=== PATIENT | male | born 1960 | race Caucasian/White ===

== ENCOUNTER 2021-03-12 16:03 | Observation (INO) | payer OTHER ==
[2021-03-12 17:33] LABS: Absolute Lymphocytes (CBC) 2.3 K/uL (0.7-4.9); Basophils % 1.1 % (0-1.3); Hematocrit 46.5 % (39.6-49.0); Lymphocytes % 31.1 % (15.3-44.8); RBC Red Blood Cell Count 5.06 M/uL (4.33-5.43)
--- NOTE | 2021-03-12 17:47 | RAD REPORT ---
EXAM DESCRIPTION: RAD - Chest Single View - 03/12/2021 4:59 pm CLINICAL HISTORY: CHEST PAIN COMPARISON: June 2019 TECHNIQUE: AP portable chest image was obtained 03/12/2021 4:59 pm . FINDINGS: No acute lung parenchymal process. Interstitial pattern matches comparison. Heart and vasc ulature are normal. No measurable pleural effusion and no pneumothorax. No acute bony abnormality see n. No acute aortic findings suspected. IMPRESSION: No acute cardiopulmonary process. No significant change from comparison study.
[2021-03-12 18:17] LABS: Protime INR 0.94
[2021-03-12 18:27] LABS: ALT/SGPT 28 U/L (12-78); AST/SGOT 14 U/L (15-37); Albumin 3.7 g/dL (3.4-5.0); Alkaline Phosphatase 75 U/L (45-117); BUN Blood Urea Nitrogen 9 mg/dL (7-18); Bicarbonate 27 mmol/L (21-32); Bilirubin Direct < 0.1 mg/dL (0-0.2); Bilirubin Total 0.3 mg/dL (0.2-1.0); Glucose Level 87 mg/dL (74-106); Magnesium 2.5 mg/dL (1.8-2.4); NT PRO-BNP 28 pg/mL (<125); Potassium 4.3 mmol/L (3.5-5.1); Protein, Total 8.1 g/dL (6.4-8.2); Sodium Level 140 mmol/L (136-145); Troponin (Emerg Dept Use Only) < 0.02 ng/mL (0.0-0.045)
--- NOTE | 2021-03-12 18:50 | ER ---
Nurse's Notes [facility] Name: Barrett Aguilar Age: 60 yrs Sex: Male : 1960 Arrival Date: 03/12/2021 Time: 16:04 Bed 20 Private MD: Juliocesar Faust Diagnosis: Chest pain on breathing Presentation: 03/12 16:05 Chief complaint: Patient states: CP for 3 days. Coronavirus screen: Vaccine status: ll1 Patient reports receiving the 2nd dose of the covid vaccine. Client denies travel out of the [place] in the last 14 days. Ebola Screen: Patient denies travel to an Ebola-affected area in the 21 days before illness onset. Initial Sepsis Screen: Does the patient meet any 2 criteria? No. Patient's initial sepsis screen is negative. Does the patient have a suspected source of infection? No. Patient's initial sepsis screen is negative. Risk Assessment: Do you want to hurt yourself or someone else? Patient reports no desire to harm self or others. Onset of symptoms was March 10, 2021. 16:05 Method Of Arrival: Ambulatory ll1 16:05 Acuity: BILL 3 ll1 Triage Assessment: 16:18 General: Appears in no apparent distress. Behavior is calm, cooperative. Pain: Denies jw6 pain. Historical: - Allergies: 16:06 No Known Allergies; ll1 - PMHx: 16:06 Diverticulitis; bowel blockage; pneumonia; ll1 - PSHx: 16:06 sinus SX; ll1 - Immunization history:: Client reports receiving the 2nd dose of the Covid vaccine. - Social history:: Smoking status: Patient denies any tobacco usage or history of. Screenin:17 Abuse screen: Denies threats or abuse. Denies injuries from another. Nutritional jw6 screening: No deficits noted. Tuberculosis screening: No symptoms or risk factors identified. Fall Risk None identified. Assessment: 16:17 Pain: Pain does not radiate. Pain began 2-3 days ago. Cardiovascular: No deficits noted.jw6 20:30 Reassessment: Awake/alert; c/o chest pain 6/10 on pain scale; SR with no ectopy; VSS; cc4 Bryan Denney NP paged with new order rec'd. 20:40 Reassessment: medicated as ordered for pain; O2 intact \T\ 2 L/NBP. cc4 Vital Signs: 16:05 BP 165 / 105; Pulse 76; Resp 17; Temp 98.3; Pulse Ox 100% on R/A; Weight 99.79 kg; ll1 Height 5 ft. 6 in. (167.64 cm); Pain 6/10; 16:28 BP 142 / 88; Pulse 79; Resp 18; Pulse Ox 98% on R/A; jw6 19:30 BP 136 / 83; Pulse 80; Resp 20; Temp 97.8; Pulse Ox 99% on R/A; cc4 20:00 BP 121 / 62; Pulse 74; Resp 18; Pulse Ox 98% on 2 lpm NC; cc4 20:30 BP 123 / 60; Pulse 74; Resp 18; Pulse Ox 98% on 2 lpm NC; cc4 21:00 BP 127 / 80; Pulse 68; Resp 18; Pulse Ox 99% on 2 lpm NC; cc4 21:30 BP 117 / 74; Pulse 68; Resp 18; Pulse Ox 98% on 2 lpm NC; cc4 22:00 BP 113 / 81; Pulse 66; Resp 18; Pulse Ox 99% on 2 lpm NC; cc4 22:30 BP 114 / 77; Pulse 66; Resp 18; Pulse Ox 99% on 2 lpm NC; cc4 23:00 BP 119 / 75; Pulse 69; Resp 18; Pulse Ox 100% on 2 lpm NC; cc4 23:30 BP 122 / 78; Pulse 67; Resp 18; Pulse Ox 100% ; cc4 03/13 00:00 BP 114 / 75; Pulse 65; Resp 18; Temp 97.6; Pulse Ox 100% on 2 lpm NC; cc4 00:30 BP 115 / 74; Pulse 68; Resp 18; Pulse Ox 100% on 2 lpm NC; cc4 03/12 16:05 Body Mass Index 35.51 (99.79 kg, 167.64 cm) ll1 ED Course: 03/12 16:04 Patient arrived in ED. as 16:06 Triage completed. ll1 16:07 Arm band placed on Patient placed in an exam room, on a stretcher. ll1 16:10 Juliocesar Faust is Private Physician. as 16:12 [facility]da[facility] 16:12 Bruce Callahan MD is Attending Physician. jmm 16:17 Suly Ramsay is Primary Nurse. jw6 16:17 Patient has correct armband on for positive identification. Side rails up X 1. Cardiac jw6 monitor on. 16:17 No provider procedures requiring assistance completed. Patient maintains SpO2 jw6 saturation greater than 95% on room air. 17:00 XRAY Chest (1 view) In Process Unspecified. EDMS 17:13 Missed attempt(s): 20 gauge antecubital area. 22 gauge forearm. mh5 17:14 Warm blanket given. Pulse ox on. NIBP on. mh5 17:15 Inserted saline lock: 22 gauge in right hand, using aseptic technique. Blood collected. ll1 17:25 Basic Metabolic Panel Sent. jw6 18:49 Augustine Carrillo MD is Hospitalizing Provider. ma2 03/13 00:30 IV Converted IV to saline lock on right hand cc4 Administered Medications: 03/12 19:03 Drug: Aspirin Chewable Tablet 324 mg Route: PO; jw6 19:04 Follow up: Response: No adverse reaction jw6 19:03 Drug: Dilaudid (HYDROmorphone) 1 mg Route: IVP; Site: right hand; jw6 19:03 Follow up: Response: No adverse reaction jw6 19:03 Drug: Zofran (Ondansetron) 4 mg Route: IVP; Site: right hand; jw6 19:03 Follow up: Response: No adverse reaction jw6 19:03 Drug: NS 0.9% 1000 ml Route: IV; Rate: 1 bolus; Site: right hand; jw6 22:38 CANCELLED (Other Intervention Used): morphine 2 mg IVP once; (PAIN>8) RASS on ADMN: la1 Combtv4, Very Agttd3, Agttd2, Rstlss1, AlertClm0, Drwsy-1, LtSdtn-2, ModSdtn-3, DpSdtn-4, UnArsble-5 x2 22:40 Drug: morphine 2 mg Route: IVP; Site: right hand; cc4 Outcome: 18:49 Decision to Hospitalize by Provider. ma2 03/13 00:30 Admitted to Med/surg accompanied by tech, via wheelchair, room 224, with oxygen, Report cc4 called to C. Adgar, RN. Condition: improved 01:50 Patient left the ED. cc4 Signatures: Dispatcher [employer] EDMS Alvin Saldaña PA PA jmm Martinez, Amelia as Martinez, Maria 5 Bruce Callahan MD MD ma2 Sarah Beth Acosta RN RN ll1 Belia Santiago RN RN cc4 Suly Ramsay 6 SheltondenitaBryan [facility] Corrections: (The following items were deleted from the chart) 03/12 23:12 21:00 BP 121 / 62; Pulse 74bpm; Resp 18bpm; Pulse Ox 95% RA; cc4 cc4 03/13 00:00 03/12 23:00 BP 119 / 75; Pulse 69bpm; Resp 20bpm; Pulse Ox 95% RA; Temp 97.6F; cc4 cc4 03/13 00:00 03/12 22:30 BP 114 / 77; Pulse 66bpm; Resp 20bpm; Pulse Ox 99% RA; 4 4 03/13 00:00 03/12 22:50 BP 128 / 84; Pulse 68bpm; Resp 18bpm; Pulse Ox 99% RA; 4 4 03/13 00:00 03/12 20:00 BP 121 / 62; Pulse 74bpm; Resp 18bpm; Pulse Ox 95% RA; 4 cc4 03/13 00:00 03/12 21:00 BP 127 / 80; Pulse 68bpm; Resp 20bpm; Pulse Ox 98% RA; 4 4 03/13 00:00 03/12 20:30 BP 123 / 60; Pulse 74bpm; Resp 18bpm; Pulse Ox 95% RA; 4 4 03/13 00:00 03/12 21:30 BP 117 / 74; Pulse 68bpm; Resp 20bpm; Pulse Ox 98% RA; 4 cc4 03/13 00:00 03/12 22:00 BP 113 / 81; Pulse 66bpm; Resp 18bpm; Pulse Ox 98% RA; 4 cc4 03/13 00:00 03/12 23:30 BP 122 / 78; Pulse 67bpm; Resp 18bpm; Pulse Ox 100% RA; 4 4
--- NOTE | 2021-03-12 18:50 | EDPHYS ---
Physician Documentation [facility] Name: Barrett Aguilar Age: 60 yrs Sex: Male : 1960 Arrival Date: 03/12/2021 Time: 16:04 Bed 20 Private MD: Juliocesar Faust ED Physician Bruce Callahan HPI: 03/12 16:13 This 60 yrs old Male presents to ER via Ambulatory with complaints of Chest jmm Pain. 16:13 The patient or guardian reports chest pain that is located primarily in the substernal jmm area. Onset: gradually, 3 day(s) ago. The pain does not radiate. Associated signs and symptoms: Pertinent negatives: shortness of breath. The chest pain is described as aching. Duration: The patient or guardian reports a single episode, that is still ongoing. Modifying factors: The symptoms are alleviated by nothing. the symptoms are aggravated by nothing. This is a 60 year old male with a history of diverticulitis that presents to the ED with complaints of substernal chest pain beginning approx 3 days ago. Pain has been constant. Denies radiation. Denies fam hx of CAD.. Historical: - Allergies: 16:06 No Known Allergies; ll1 - PMHx: 16:06 Diverticulitis; bowel blockage; pneumonia; ll1 - PSHx: 16:06 sinus SX; ll1 - Immunization history:: Client reports receiving the 2nd dose of the Covid vaccine. - Social history:: Smoking status: Patient denies any tobacco usage or history of. ROS: 16:13 Constitutional: Negative for fever, chills, and weight loss, Respiratory: Negative for jmm shortness of breath, cough, wheezing, and pleuritic chest pain. 16:13 Cardiovascular: Positive for chest pain. 16:13 All other systems are negative. Exam: 16:13 Constitutional: This is a well developed, well nourished patient who is awake, alert, jmm and in no acute distress. Head/Face: atraumatic. Eyes: EOMI, no conjunctival erythema appreciated ENT: Moist Mucus Membranes Neck: Trachea midline, Supple Chest/axilla: Normal chest wall appearance and motion. Cardiovascular: Regular rate and rhythm. No edema appreciated Respiratory: Normal respirations, no respiratory distress appreciated Abdomen/GI: Non distended, soft Back: Normal ROM Skin: General appearance color normal MS/ Extremity: Moves all extremities, no obvious deformities appreciated, no edema noted to the lower extremities Neuro: Awake and alert, normal gait Psych: Behavior is normal, Mood is normal, Patient is cooperative and pleasant Vital Signs: 16:05 BP 165 / 105; Pulse 76; Resp 17; Temp 98.3; Pulse Ox 100% on R/A; Weight 99.79 kg; ll1 Height 5 ft. 6 in. (167.64 cm); Pain 6/10; 16:28 BP 142 / 88; Pulse 79; Resp 18; Pulse Ox 98% on R/A; jw6 19:30 BP 136 / 83; Pulse 80; Resp 20; Temp 97.8; Pulse Ox 99% on R/A; cc4 20:00 BP 121 / 62; Pulse 74; Resp 18; Pulse Ox 98% on 2 lpm NC; cc4 20:30 BP 123 / 60; Pulse 74; Resp 18; Pulse Ox 98% on 2 lpm NC; cc4 21:00 BP 127 / 80; Pulse 68; Resp 18; Pulse Ox 99% on 2 lpm NC; cc4 21:30 BP 117 / 74; Pulse 68; Resp 18; Pulse Ox 98% on 2 lpm NC; cc4 22:00 BP 113 / 81; Pulse 66; Resp 18; Pulse Ox 99% on 2 lpm NC; cc4 22:30 BP 114 / 77; Pulse 66; Resp 18; Pulse Ox 99% on 2 lpm NC; cc4 23:00 BP 119 / 75; Pulse 69; Resp 18; Pulse Ox 100% on 2 lpm NC; cc4 23:30 BP 122 / 78; Pulse 67; Resp 18; Pulse Ox 100% ; cc4 03/13 00:00 BP 114 / 75; Pulse 65; Resp 18; Temp 97.6; Pulse Ox 100% on 2 lpm NC; cc4 00:30 BP 115 / 74; Pulse 68; Resp 18; Pulse Ox 100% on 2 lpm NC; cc4 03/12 16:05 Body Mass Index 35.51 (99.79 kg, 167.64 cm) ll1 MDM: 03/12 16:26 Patient medically screened. [facility] 18:48 Differential diagnosis: anxiety, coronary artery disease gastroesophageal reflux ma2 disease (GERD), stable angina. The patient was given aspirin in the Emergency Department. Data reviewed: vital signs, nurses notes. Counseling: I had a detailed discussion with the patient and/or guardian regarding: the historical points, exam findings, and any diagnostic results supporting the discharge/admit diagnosis, the presence of at least one elevated blood pressure reading (>120/80) during this emergency department visit, the need for further work-up and treatment in the hospital. 03/12 16:13 Order name: Basic Metabolic Panel [facility] 03/12 16:13 Order name: CBC with Diff; Complete Time: 18:43 [facility] 03/12 16:13 Order name: LFT's; Complete Time: 18:43 [facility] 03/12 16:13 Order name: Magnesium; Complete Time: 18:43 [facility] 03/12 16:13 Order name: NT PRO-BNP; Complete Time: 18:43 [facility] 03/12 16:13 Order name: PT-INR; Complete Time: 18:43 [facility] 03/12 16:13 Order name: Troponin (emerg Dept Use Only); Complete Time: 18:43 [facility] 03/12 16:13 Order name: XRAY Chest (1 view); Complete Time: 18:01 [facility] 03/12 16:13 Order name: D-Dimer; Complete Time: 18:43 [facility] 03/12 16:13 Order name: Basic Metabolic Panel; Complete Time: 18:43 [facility] 03/12 19:05 Order name: COVID-19 SARS RT PCR (Document "Date of Onset" if Symptomatic); Complete tt3 Time: 10:03/12 16:13 Order name: EKG; Complete Time: 16:13 [facility] 03/12 16:13 Order name: Cardiac monitoring; Complete Time: 16:20 [facility] 03/12 16:13 Order name: EKG - Nurse/Tech; Complete Time: 16:20 [facility] 03/12 16:13 Order name: IV Saline Lock; Complete Time: 17:25 [facility] 03/12 16:13 Order name: Labs collected and sent; Complete Time: 17:25 [facility] 03/12 16:13 Order name: O2 Per Protocol; Complete Time: 16:20 [facility] 03/12 16:13 Order name: O2 Sat Monitoring; Complete Time: 16: [facility] 03/12 17:38 Order name: Labs - recollect needed: recollect all the blood please/ hemolyzed; eb Complete Time: 18:20 Administered Medications: 19:03 Drug: Aspirin Chewable Tablet 324 mg Route: PO; jw6 19:04 Follow up: Response: No adverse reaction jw6 19:03 Drug: Dilaudid (HYDROmorphone) 1 mg Route: IVP; Site: right hand; jw6 19:03 Follow up: Response: No adverse reaction jw6 19:03 Drug: Zofran (Ondansetron) 4 mg Route: IVP; Site: right hand; jw6 19:03 Follow up: Response: No adverse reaction jw6 19:03 Drug: NS 0.9% 1000 ml Route: IV; Rate: 1 bolus; Site: right hand; jw6 22:38 CANCELLED (Other Intervention Used): morphine 2 mg IVP once; (PAIN>8) RASS on ADMN: la1 Combtv4, Very Agttd3, Agttd2, Rstlss1, AlertClm0, Drwsy-1, LtSdtn-2, ModSdtn-3, DpSdtn-4, UnArsble-5 x2 22:40 Drug: morphine 2 mg Route: IVP; Site: right hand; cc4 Disposition: 18:48 Co-signature as Attending Physician, Bruce Callahan MD. ma2 Disposition Summary: 03/12/21 18:49 Hospitalization Ordered Hospitalization Status: Observation pa2 Provider: Augustine Carrillo ma Location: Telemetry/MedSurg (observation) ma2 Condition: Stable ma2 Problem: new ma2 Symptoms: are unchanged pa2 Bed/Room Type: Standard [facility] Room Assignment: 224(03/12/21 22:00) Diagnosis - Chest pain on breathing ma2 Forms: - Medication Reconciliation Form ma2 - SBAR form ma2 Signatures: Dispatcher [employer] EDMS Alvin Saldaña PA PA jmm Attema, Lee, SCIENTIFIC AIDE-C SCIENTIFIC AIDE-ClaJessica Copeland RN RN cg Bruce Callahan MD MD pa2 Stephany Guerra Lynsay, RN RN ll1 Belia Santiago RN RN cc4 Suly Ramsay jw6 Corrections: (The following items were deleted from the chart) 22:00 18:49 ma2 cg 22:38 22:38 morphine 2 mg IVP once; (PAIN>8) RASS on ADMN: Combtv4, Very Agttd3, Agttd2, la1 Rstlss1, AlertClm0, Drwsy-1, LtSdtn-2, ModSdtn-3, DpSdtn-4, UnArsble-5 x2 ordered. la1
--- NOTE | 2021-03-12 19:15 | P.HP ---
Certification for Inpatient Patient admitted to: Observation With expected LOS: <2 Midnights Patient will require the following post-hospital care: None Practitioner: I am a practitioner with admitting privileges, knowledge of patient current condition, hospital course, and medical plan of care. Services: Services provided to patient in accordance with Admission requirements found in Title 42 Section 412.3 of the Code of Federal Regulations Patient History Date of Service: 03/12/21 Primary Care Provider: Dr. Faust Reason for admission: Chest pain History of Present Illness: 60-year-old otherwise healthy male presents emerge department for chest pain. Patient reports pain is been on for approximately 3 days described as squeezing substernal radiating to the right arm, patient denies any form of cardiac evaluation in the past. Initial troponin, EKG, chest x-ray unremarkable the emergency department, ED provider wishes to admit for ACS rule out - Past Medical/Surgical History -: Chronic sinus issues -: Sinus surgery Psychosocial/ Personal History: Lives at home with his - Family History Father -: Cancer Mother -: Cancer - Social History Smoking Status: Never smoker Alcohol use: No CD- Drugs: No Caffeine use: Yes Place of Residence: Home Review of Systems 10-point ROS is otherwise unremarkable Cardiovascular: Chest Pain Physical Examination - Physical Exam General: Alert, In no apparent distress, Oriented x3 HEENT: Atraumatic, PERRLA, Mucous membr. moist/pink, EOMI, Sclerae nonicteric Neck: Supple, 2+ carotid pulse no bruit, No LAD, Without JVD or thyroid abnormality Respiratory: Clear to auscultation bilaterally, Normal air movement Cardiovascular: Regular rate/rhythm, Normal S1 S2 Gastrointestinal: Normal bowel sounds, No tenderness Musculoskeletal: No tenderness Integumentary: No rashes Neurological: Normal speech, Normal strength at 5/5 x4 extr, Normal tone, Normal affect - Studies Laboratory Data (last 24 hrs) 03/12/21 17:50: PT 10.8, INR 0.94 03/12/21 17:50: WBC 7.30, Hgb 15.6, Hct 46.5, Plt Count 239 03/12/21 17:50: Sodium 140, Potassium 4.3, BUN 9, Creatinine 0.86, Glucose 87, Magnesium 2.5 H, Total Bilirubin 0.3, AST 14 L, ALT 28, Alkaline Phosphatase 75 Assessment and Plan - Plan Assessment: Chest pain rule out ACS Plan: Chest pain rule out ACS: Monitor on telemetry, trend troponins, cardiology consult in place. Continue with aspirin, statin, beta-rosa therapy. As needed morphine. DVT PPX: Lovenox Code status: Full Discharge Plan: Home Plan to discharge in: 24 Hours - Advance Directives Does patient have a Living Will: No Does patient have a Durable POA for Healthcare: No - Code Status/Comfort Care Code Status Assessed: Yes (Full code) Critical Care: No Time Spent Managing Pts Care (In Minutes): 55
[2021-03-12] MEDS ORDERED: ASPIRIN 81 MG CHEWABLE TABLET ONE (19:23)
[2021-03-12] MEDS ORDERED: HYDROMORPHONE HCL 1 MG/ML INJ ONE (19:24)
[2021-03-12] MEDS ORDERED: NA CHLORIDE 0.9% 1,000 ML ONE (19:24)
[2021-03-12] MEDS ORDERED: ONDANSETRON 4 MG/2 ML VIAL ONE (19:24)
[2021-03-12] MEDS ORDERED: MORPHINE 2 MG/ML SYR ONE (23:07)
[2021-03-13] MEDS ORDERED: ONDANSETRON 4 MG/2 ML VIAL IV PRN (01:17)
[2021-03-13] MEDS ORDERED: ATORVASTATIN 40 MG TAB PO SCH (01:17)
[2021-03-13] MEDS ORDERED: ACETAMINOPHEN 500 MG TAB PO PRN (01:17)
[2021-03-13 01:30] VITALS: BMI 35.4
[2021-03-13 02:16] VITALS: O2SAT 100
[2021-03-13 02:25] LABS: Urine Appearance CLEAR (Clear); Urine Bilirubin NEGATIVE (Negative); Urine Blood NEGATIVE (Negative); Urine Color YELLOW (Yellow); Urine Glucose NEGATIVE (Negative); Urine Protein NEGATIVE (Negative); Urine Specific Gravity 1.015 (1.005-1.030); Urine Urobilinogen 0.2 mg/dL (0.2-1.0)
[2021-03-13 02:26] LABS: Urine Microscopic Reflex NO UMIC
[2021-03-13 02:47] LABS: Absolute Lymphocytes (CBC) 3.1 K/uL (0.7-4.9); Basophils % 0.8 % (0-1.3); MPV 8.2 fL (7.6-11.3); RBC Red Blood Cell Count 4.35 M/uL (4.33-5.43)
[2021-03-13 03:22] LABS: ALT/SGPT 25 U/L (12-78); AST/SGOT 13 U/L (15-37); Albumin 3.3 g/dL (3.4-5.0); Alkaline Phosphatase 66 U/L (45-117); BUN Blood Urea Nitrogen 10 mg/dL (7-18); Bicarbonate 29 mmol/L (21-32); Bilirubin Total 0.4 mg/dL (0.2-1.0); Glucose Level 94 mg/dL (74-106); HDL Cholesterol 49 mg/dL (40-60); LDL Cholesterol, Calculated 176 (<130); Magnesium 2.5 mg/dL (1.8-2.4); Protein, Total 7.1 g/dL (6.4-8.2); Sodium Level 142 mmol/L (136-145)
[2021-03-13] MEDS: MORPHINE 2 MG/ML SYR IV PRN ×2 (04:31→12:06)
[2021-03-13] MEDS ORDERED: METOPROLOL TAR 25 MG TAB PO SCH (06:00)
[2021-03-13] MEDS ORDERED: ENOXAPARIN 40 MG/0.4 ML SQ SCH (09:00)
[2021-03-13] MEDS ORDERED: ASPIRIN EC 81 MG TAB PO SCH (09:00)
[2021-03-13 14:08] VITALS: BP 106/55; TEMP 97.9
--- NOTE | 2021-03-13 14:22 | EKG ---
Test Date: 2021-03-12 Test Time: 16:13:47 Ingot Car Operator: SUSAN MEASUREMENT RESULTS: Intervals: Rate: 76 DC: 142 QRSD: 96 QT: 384 QTc: 432 [place]: P: 62 DC: 142 QRS: 27 T: 31 INTERPRETIVE STATEMENTS: Normal sinus rhythm Normal ECG Compared to ECG 05/05/2007 17:15:27 Sinus tachycardia no longer present Short DC interval no longer present ST (T wave) deviation no longer present Possible ischemia no longer present Electronically Signed On 03-13-21 14:21:32 CDT by Edi Lanza
--- NOTE | 2021-03-13 16:11 | P.DS ---
Admission Date: 03/12/21 Discharge Date: 03/13/21 Primary Care Provider: Dr. Faust Disposition: ROUTINE DISCHARGE Discharge Condition: GOOD Reason for Admission: Chest pain Consultations: Cardiology - Dr. Lanza Procedures: CXR (03/12): FINDINGS: No acute lung parenchymal process. Interstitial pattern matches comparison. Heart and vasculature are normal. No measurable pleural effusion and no pneumothorax. No acute bony abnormality seen. No acute aortic findings suspected. IMPRESSION: No acute cardiopulmonary process. No significant change from comparison study. Problem List Chest Pain Hyperlipidemia (LDL: 176) Brief History of Present Illness: 60-year-old otherwise healthy male presents emerge department for chest pain. Patient reports pain is been on for approximately 3 days described as squeezing substernal radiating to the right arm, patient denies any form of cardiac evaluation in the past. Initial troponin, EKG, chest x-ray unremarkable the emergency department, ED provider wishes to admit for ACS rule out Hospital Course: Chest pain was evaluated by chest x-ray, EKG, telemetry. Cardiology was consulted. Imaging and work-up remain negative, no signs of ischemia. He was noted to have hyperlipidemia, LDL in the 170s. Patient was deemed stable for discharge home. He is to follow-up with cardiology in this coming week for outpatient echocardiogram and stress test. Patient's calculated ASCVD risk score was ~10%. After discussion of his overall cardiac risk, patient's was in agreement to start moderate intensity statin therapy. Recommend repeat lipid profile in 6 weeks. Vital Signs/Physical Exam: Temp Pulse Resp BP Pulse Ox 97.9 F 69 18 106/55 L 97 03/13/21 12:00 03/13/21 12:00 03/13/21 12:00 03/13/21 12:00 03/13/21 12:00 General: Alert, In no apparent distress, Oriented x3 HEENT: Sclerae nonicteric Neck: Supple, No LAD Respiratory: Clear to auscultation bilaterally, Normal air movement Cardiovascular: No edema, Regular rate/rhythm, Normal S1 S2, No murmurs Gastrointestinal: Soft and benign, Non-distended, No tenderness Musculoskeletal: No erythema, No tenderness Integumentary: No rashes, No significant lesion Neurological: Normal speech, Normal affect Laboratory Data at Discharge: WBC 8.60 K/uL (4.3-10.9) D 03/13/21 02:07 Hgb 13.4 g/dL (13.6-17.9) L 03/13/21 02:07 Hct 40.0 % (39.6-49.0) 03/13/21 02:07 Plt Count 235 K/uL (152-406) 03/13/21 02:07 PT 10.8 SECONDS (9.5-12.5) 03/12/21 17:50 INR 0.94 03/12/21 17:50 Sodium 142 mmol/L (136-145) 03/13/21 02:07 Potassium 4.0 mmol/L (3.5-5.1) 03/13/21 02:07 BUN 10 mg/dL (7-18) 03/13/21 02:07 Creatinine 0.83 mg/dL (0.55-1.3) 03/13/21 02:07 Glucose 94 mg/dL (74-106) 03/13/21 02:07 Magnesium 2.5 mg/dL (1.8-2.4) H 03/13/21 02:07 Total Bilirubin 0.4 mg/dL (0.2-1.0) 03/13/21 02:07 AST 13 U/L (15-37) L 03/13/21 02:07 ALT 25 U/L (12-78) 03/13/21 02:07 Alkaline Phosphatase 66 U/L (45-117) 03/13/21 02:07 Troponin I < 0.02 ng/mL (0.0-0.045) 03/13/21 08:24 Triglycerides 154 mg/dL (<150) H 03/13/21 02:07 Cholesterol 256 mg/dL (<200) H 03/13/21 02:07 HDL Cholesterol 49 mg/dL (40-60) 03/13/21 02:07 Cholesterol/HDL Ratio 5.22 03/13/21 02:07 Home Medications: Atorvastatin Calcium 20 mg PO BEDTIME 30 Days #30 tablet 03/13/21 Cetirizine HCl [Zyrtec] 10 mg PO DAILY 03/13/21 Fluticasone [Flonase 50MCG Nasal Advance*] 2 sprays DAILY 03/13/21 Montelukast [Singulair*] 10 mg PO DAILY 03/13/21 New Medications: RX: Atorvastatin Calcium 20 mg PO BEDTIME 30 Days #30 tablet Physician Discharge Instructions: Chest pain was evaluated by EKG, chest x-ray, cardiac enzymes, and cardiac monitoring. Cardiology was consulted. Work-up remained negative and no evidence of heart damage, infection, blood clot, or other etiology of your pain. You are deemed stable for discharge home. You are found to have high cholesterol. You are discharged home with a cholesterol medication, atorvastatin. Follow-up with your PCP in 3-5 days. Follow-up with cardiology as discussed, for possible outpatient stress test. Diet: AHA Activity: Ad jihan Followup: Edi Lanza MD [ACTIVE - CAN ADMIT] - Juliocesar Faust MD [Primary Care Provider] - Time spent managing pt's care (in minutes): 45
--- NOTE | 2021-03-14 16:43 | CON ---
Date of Consultation: 03/13/2021 Reason For Consultation: Chest pain. History Of Present Illness: Mr. Aguilar is a 60. Has no previous heart history. Has a history of di verticulitis, pneumonia, sinusitis, and small bowel obstruction in the past. Came in with mid epigas tric to substernal chest pain. No shortness of breath. Pain was described as aching. The patient h as not changed by body position improved or exertion. Denies nausea, vomiting, diaphoresis, PND, ort hopnea, pedal edema, palpitations, or syncope. Symptoms have been going on for 3 days. Family History: Negative. Allergies: NONE. Review of Systems: Negative. Social History: Negative. Medications: At home are none. Physical Examination: Vital Signs: Stable, afebrile. HEENT: Negative. Neck: Supple with no bruit. Chest: Clear to auscultation and percussion. Cardiac: Revealed a regular rhythm and rate. No murmurs, gallops, or rubs. Abdomen: Benign. Extremities: Revealed no clubbing, cyanosis, or edema. Diagnostic Data: His chest x-ray was normal. His EKG was normal. His laboratory evaluation, BNP, t roponin, CPKs, and MBs were all within normal limit. Impression And Plan: Mr. Aguilar is a patient, who does not really have much in way of cardiac risk f actors, although he has significant dyslipidemia. His cholesterol was 256, triglycerides 154. His L DL was 176. I am comfortable with him going home. I still think his pain is probably noncardiac in nature and he deserves to have an MPI and an echocardiogram as an outpatient. I will make arrangemen ts for him to do so in the near future. I do think a low-dose beta-rosa, aspirin, and a low-dose statin is indicated. Case was discussed with Dr. Carrillo. RICCARDO/EDEL Voice ID: [id number] Report ID: [id number]
--- OUTSIDE RECORDS SUMMARY | 2021-03-26 19:33 | XMS REPORT | Continuity of Care Document ---
:1960 Author Organization [facility] t Address [address] [place] [address] Care Team Providers Name Role Phone MIN Attending Clinician Unavailable MIN Admitting Clinician Unavailable Payers Payer Name Policy Type Policy Number Effective Date Expiration Date Ana DIXON [facility] [id number] 2015 00:00:00 Problems This patient has no known problems. Allergies, Adverse Reactions, Alerts Allergy Allergy Status Severity Reaction(s) Onset Inactive Treating Comm ents Source Name Type Date Date Clinician NO KNOWN [facility] This patient has no known medications. Procedures This patient has no known procedures. Encounters Start End Encounter Admission Attending Care Care Encounter Source Date/Time Date/Time Type Type Clinicians Facility Department ID 2018-04-27 2018-04-28 Outpatient X MARLENY COPELAND RUDOLPH [id number] An 05:51:40 11:20:00 [facility] Results This patient has no known results.
== END 2021-03-13 15:10 | disposition home or self-care (01) ==
LOC: ER 16:03 → ERHOLD 19:09 → 2ND 03-13 00:10
PROVIDERS: ADMIT Hospitalist; ATTEND Hospitalist
DX: R07.9 Chest pain, unspecified (principal); E78.5 Hyperlipidemia, unspecified; K57.92 Diverticulitis of intestine, part unspecified, without perforation or abscess without bleeding; Z20.822 Contact with and (suspected) exposure to COVID-19; Z87.01 Personal history of pneumonia (recurrent); Z80.9 Family history of malignant neoplasm, unspecified
CPT/HCPCS: 93005; 85025 ×2; 80048; 36415; 83735 ×2; 85610; 80061; 85379; 80076; 84443; 81003; 84484 ×3; 84439; 80053; 83880; 71045; 96375; 96374; 99285; U0003; J1650; J2270 ×3; J1170; J7030; J2405; G0378 ×2